=== PATIENT | male | born 1965 | race Caucasian/White ===

== ENCOUNTER 2016-09-12 20:07 | Emergency (ER) | payer OTHER ==
--- NOTE | 2016-09-12 20:13 | PDOC ---
History of Present Illness <Odell Lama - Last Filed: 09/12/16 21:04> - History of Present Illness Initial Comments: 09/12/16 20:20 The patient is a 51 year old male with a past medical hx of DVTs who was sent to the ED by his PCP for a doppler of his bilateral lower extremities to rule out DVT. The patient states he was admitted to [facility] for five weeks for DVTs to both of his calves and was discharged on August 27. The patient notes he then went to a rehab facility where he was given PT for his legs. He notes he was given blood thinners at the Rehab Center but does not recall the name of the medication. He left Rehab two days ago and was told to follow up with his PCP, Dr. Perez. He reports he saw Dr. Perez this evening who sent him to the ED for a bilateral lower extremity doppler to rule out DVT due to bilateral lower extremity edema. The patient reports swelling to his lower extremities but has no further complaints at this time. The patient denies fever, chills, weakness The patient denies chest pain, SOB, palpitations <Roya Heard - Last Filed: 09/12/16 21:07> - General Stated Complaint: SENT TO BE CHECKED FOR BILATERAL DVT Time Seen by Provider: 09/12/16 20:11 Past History <Odell Lama - Last Filed: 09/12/16 21:04> <Roya Heard - Last Filed: 09/12/16 21:07> - Past Medical History Allergies/Adverse Reactions: Allergies Allergy/AdvReac Type Severity Reaction Status Date / Time No Known Allergies Allergy Verified 09/12/16 20:08 Home Medications: Ambulatory Orders Atorvastatin Ca [Lipitor] 20 mg PO HS 09/12/16 Clopidogrel Bisulfate [Plavix -] 75 mg PO DAILY 09/12/16 Glipizide/Metformin HCl [Glipizide-Metformin 5-500 mg] 1 each PO BID 09/12/16 Metoprolol Succinate [Toprol Xl -] 50 mg PO BID 09/12/16 Review of Systems - Review of Systems Able to Perform ROS?: Yes Comments:: 09/12/16 20:20 GENERAL/CONSTITUTIONAL: No: fever, chills, weakness CARDIOVASCULAR: +bilateral lower extremity edema. No: chest pain, palpitations RESPIRATORY: No: shortness of breath <Roya Heard - Last Filed: 09/12/16 21:07> *Physical Exam - Physical Exam General Appearance: Yes: Nourished, Appropriately Dressed. No: Apparent Distress Neck: positive: Supple Respiratory/Chest: positive: Lungs Clear, Normal Breath Sounds. negative: Respiratory Distress Cardiovascular: positive: Regular Rhythm, Regular Rate Gastrointestinal/Abdominal: positive: Normal Bowel Sounds, Soft Musculoskeletal: positive: Normal Inspection. negative: CVA Tenderness, Vertebral Tenderness Extremity: positive: Normal Capillary Refill, Pedal Edema, Swelling (b/l w/o tenderness) Integumentary: negative: Ecchymosis, Bruising Neurologic: positive: Fully Oriented, Alert, Normal Mood/Affect, Normal Response , Motor Strength 5/5 <Odell Lama - Last Filed: 09/12/16 21:04> ED Treatment Course - RADIOLOGY Radiology Studies Ordered: Category Date Time Status DUPLEX VASCUL US-2LEGS [US] Stat Ultrasound 09/12/16 20:11 Ordered <Odell Lama - Last Filed: 09/12/16 21:04> - RADIOLOGY Radiograph Interpretation: 09/12/16 21:06 Bilateral leg Doppler venous ultrasound Grayscale, pulsed Doppler and color Doppler interrogation of both lower extremities deep venous system was performed. The common femoral vein, superficial femoral vein, popliteal and posterior tibial vein were identified, bilaterally with a normal phasic wave form, adequate compressibility and adequate response to augmentation. Visualized portion of the greater saphenous and deep femoral vein are patent No Cook's cyst is identified in the popliteal fossa, bilaterally. Impression: There is no evidence of deep venous thromboses in both lower extremities. Reported By: Bina Weldon MD 09/12/162058 <Roya Heard - Last Filed: 09/12/16 21:07> Progress Note - Progress Note Progress Note: NO DVT <Odell Lama Last Filed: 09/12/16 21:04> *DC/Admit/Observation/Transfer <Odell Lama - Last Filed: 09/12/16 21:04> - Attestations Scribe Attestion: 09/12/16 20:19 Documentation prepared by Roya Neroda, acting as chief medical technologist for Odell Lama MD/DO. <Roya Heard - Last Filed: 09/12/16 21:07> Diagnosis at time of Disposition: Leg edema Qualifiers: Laterality: bilateral Qualified Code(s): R60.0 - Localized edema - Discharge Dispostion Disposition: HOME Condition at time of disposition: Stable - Referrals Referrals: Sidney Perez MD [Primary Care Provider] - Call tomorrow - Patient Instructions Additional Instructions: CONTINUE MEDICATIONS PRESCRIBED CALL YOUR DOCTOR TOMORROW RETURN TO ER IF WORSENING OR NEW SYMPTOMS
[2016-09-12 20:26] VITALS: BP 108/80; PULSE 100; TEMP 98.4; BMI 30.2
== END 2016-09-12 21:08 | disposition home or self-care (01) ==
LOC: FER 20:07
DX: R60.0 Localized edema (principal); Z86.718 Personal history of other venous thrombosis and embolism; Z79.01 Long term (current) use of anticoagulants; Z79.84 Long term (current) use of oral hypoglycemic drugs
CPT/HCPCS: 93970-TC; 99281-25

== ENCOUNTER 2019-07-07 17:31 | Observation (INO) | payer OTHER ==
[2019-07-07 17:43] VITALS: TEMP 97.7; BMI 39.9
--- NOTE | 2019-07-07 17:43 | PDOC ---
Rapid Medical Evaluation Time Seen by Provider: 07/07/19 17:38 Medical Evaluation: Allergies Allergy/AdvReac Type Severity Reaction Status Date / Time No Known Allergies Allergy Verified 07/07/19 17:39 07/07/19 17:41 This patient received a in-person evaluation in triage cc/HPI: lightheadedness today with elevated blood pressure Denies chest pain or shortness of breath. Has 3 stents PE: NAD clear lungs bilaterally heart s1 s2 orders: ekg, This patient will proceed to ED for further evaluation Discharge Disposition - Diagnosis HTN (hypertension), Lightheadedness - Discharge Dispostion Condition at time of disposition: Stable - Referrals - Patient Instructions - Post Discharge Activity
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
[2019-07-07 18:21] LABS: BASO % 0.5 % (0-2.0); EOS % 1.7 % (0-4.5); HEMATOCRIT 40.7 % (35.4-49); LYMPH % 21.7 % (8-40); MCH 20.3 pg (25.7-33.7); MCHC 31.9 g/dl (32.0-35.9); MEAN CELL VOLUME 63.5 fl (80-96); MEAN PLT VOLUME 9.1 fl (7.5-11.1); MONO % 6.9 % (3.8-10.2); NEUT % 69.2 % (42.8-82.8); PLATELET COUNT 139 K/MM3 (134-434); RBC 6.41 M/mm3 (4.00-5.60); RDW 16.8 % (11.9-15.9); WHITE BLOOD COUNT 7.8 K/mm3 (4.0-10.0)
--- NOTE | 2019-07-07 18:22 | PDOC ---
History of Present Illness - General Chief Complaint: Blood Pressure Problem Stated Complaint: HYPERTENSION Time Seen by Provider: 07/07/19 17:38 History Source: Patient Exam Limitations: No Limitations - History of Present Illness Initial Comments: 53-year-old male with past medical history of hypertension, hyperlipidemia, diabetes on insulin, CAD (s/p three Cardiac stents), DVT (xthree years ago provoked by prolonged bed rest) sent to the emergency department by PCP Dr. Perez for lightheadedness since 5 AM this morning. Patient stated he awoke feeling lightheaded, felt it all day but was unable to locate his blood pressure machine until his got home, as it was in her car all day. He reported he took his pressure around 4:30 PM, and the systolic was in the one 190s, called his PCP who prompted him to come to the emergency department. He denied changes to his medications, missing medications, chest pain, shortness of breath, lower extremity swelling, nausea, vomiting, diarrhea, fever, cough, syncope. Pt reported he only ate a bowl of cereal today. ROS General: denied fever, chills, generalized weakness. HEENT: denied sore throat, rhinorrhea, ear pain. Cardiovascular: admitted to [facility]. denied chest pain, palpitations, syncope, diaphoresis. Respiratory: denied shortness of breath, cough, sputum production, hemoptysis. Gastrointestinal: denied abdominal pain, nausea, vomiting, diarrhea, constipation, blood in stool. Genitourinary: denied dysuria, increased urinary frequency, hematuria, urinary incontinence, flank pain. Back: denied back pain. Musculoskeletal: denied joint pain, muscle pain, joint swelling. Neurological: denied headache, dizziness, numbness, tingling, weakness. Integumentary: denied rash, laceration, abrasion. Hematologic/Lymphatic: denied bruising or bleeding. Constitutional: Well-nourished, Well-developed, appearing stated age. HEENT: head is normocephalic, atraumatic. EOMI. PERRLA. no posterior pharyngeal erythema.no tonsillar swelling or exudates bilaterally. uvula midline. no peritonsillar swelling, tenderness or abscess. no jaw tenderness or misalignment. Neck: supple. Full ROM. Cardiovascular: regular heart rhythm. no murmurs. no pericardial friction rub. Respiratory: clear to auscultation bilaterally. no crackles, rhonchi or wheezing. no stridor. Gastrointestinal: soft, nontender. normal bowel sounds. no rebound, guarding, masses. Extremities: peripheral pulses intact. 1+ pitting edema bilaterally. diabetic ulcer to right foot, no surrounding erythema, no increased warmth. Neurological: CN 2-12 grossly intact. moves all four extremities. Psych: awake, alert, oriented x3. follows commands. answers questions appropriately. Past History - Past Medical History Allergies/Adverse Reactions: Allergies Allergy/AdvReac Type Severity Reaction Status Date / Time No Known Allergies Allergy Verified 07/07/19 17:39 Home Medications: Ambulatory Orders Atorvastatin Ca [Lipitor] 10 mg PO HS 09/12/16 Clopidogrel Bisulfate [Plavix -] 75 mg PO DAILY 09/12/16 Glipizide/Metformin HCl [Glipizide-Metformin 5-500 mg] 1 each PO BID 09/12/16 Aspirin [Ecotrin] 81 mg PO DAILY 07/07/19 Becaplermin [Regranex] 15 gm TP BID 07/07/19 Cyanocobalamin (Vitamin B-12) [Vitamin B-12] 1,000 mcg PO DAILY 07/07/19 Metoprolol Tartrate [Lopressor -] 50 mg PO HS 07/07/19 Metoprolol Tartrate [Lopressor -] 100 mg PO AM 07/07/19 Multivitamin [Multiple Vitamins] 1 each PO DAILY 07/07/19 Telmisartan [Micardis] 80 mg PO DAILY 07/07/19 - Immunization History Immunization Up to Date: Yes - Psycho Social/Smoking Cessation Hx Smoking History: Never smoked Have you smoked in the past 12 months: No Hx Alcohol Use: No Drug/Substance Use Hx: No Substance Use Type: None *Physical Exam - Vital Signs Last Vital Signs Temp Pulse Resp BP Pulse Ox 97.7 F 89 18 181/108 H 97 07/07/19 17:39 07/07/19 17:39 07/07/19 17:39 07/07/19 17:39 07/07/19 17:39 Vital Signs - Vital Signs #1 Time: 19:10 Blood Pressure: 174/97 BP Location: Right Arm Blood Pressure Position: Sitting Pulse Rate: 88 Respiratory Rate: 16 O2 Sat by Pulse Oximetry (%): 96 Oxygen Delivery Method: Room Air ED Treatment Course - LABORATORY CBC & Chemistry Diagram: 07/07/19 18:07 07/07/19 18:07 Medical Decision Making - Medical Decision Making 53 year old male with above PMH presented to ED for lightheadedness since this AM associated with HTN. Initial Vital Signs Temp Pulse Resp BP Pulse Ox 97.7 F 89 18 181/108 H 97 07/07/19 17:39 07/07/19 17:39 07/07/19 17:39 07/07/19 17:39 07/07/19 17:39 Afebrile. No tachycardia. No tachypnea. Hypertensive. No hypoxia on room air. Labs ordered: CBC, CMP, Mg, Troponin, UA, PT/PTT/INR Imaging ordered: CXR Medications ordered: none EKG performed at: 1747: rate 87, regular rhythm, normal axis, NH 204, QTC 452, no acute ST changes. CXR my view: sharp costophrenic angles, no cardiomegaly, no infiltrate. -Pending official report 07/07/19 19:16 Time: 19:10 Blood Pressure: 174/97 BP Location: Right Arm Blood Pressure Position: Sitting Pulse Rate: 88 Respiratory Rate: 16 O2 Sat by Pulse Oximetry (%): 96 Oxygen Delivery Method: Room Air Hypertension improved with no treatment. Laboratory Last Values WBC 7.8 K/mm3 (4.0-10.0) 07/07/19 18:07 RBC 6.41 M/mm3 (4.00-5.60) H 07/07/19 18:07 Hgb 13.0 GM/dL (11.7-16.9) 07/07/19 18:07 Hct 40.7 % (35.4-49) 07/07/19 18:07 MCV 63.5 fl (80-96) L 07/07/19 18:07 MCH 20.3 pg (25.7-33.7) L 07/07/19 18:07 MCHC 31.9 g/dl (32.0-35.9) L 07/07/19 18:07 RDW 16.8 % (11.9-15.9) H 07/07/19 18:07 Plt Count 139 K/MM3 (134-434) 07/07/19 18:07 MPV 9.1 fl (7.5-11.1) 07/07/19 18:07 Absolute Neuts (auto) 5.4 K/mm3 (1.5-8.0) 07/07/19 18:07 Neutrophils % 69.2 % (42.8-82.8) 07/07/19 18:07 Lymphocytes % 21.7 % (8-40) 07/07/19 18:07 Monocytes % 6.9 % (3.8-10.2) 07/07/19 18:07 Eosinophils % 1.7 % (0-4.5) 07/07/19 18:07 Basophils % 0.5 % (0-2.0) 07/07/19 18:07 Nucleated RBC % 0 % (0-0) 07/07/19 18:07 Hypochromia 1+ 07/07/19 18:07 Platelet Estimate Adequate 07/07/19 18:07 Anisocytosis 1+ 07/07/19 18:07 Ovalocytes Few 07/07/19 18:07 PT with INR 12.40 SEC (9.7-13.0) 07/07/19 18:07 INR 1.05 (0.83-1.09) 07/07/19 18:07 PTT (Actin FS) 32.0 SECONDS (25.2-36.5) 07/07/19 18:07 Sodium 142 mmol/L (136-145) 07/07/19 18:07 Potassium 3.7 mmol/L (3.5-5.1) 07/07/19 18:07 Chloride 106 mmol/L (98-107) 07/07/19 18:07 Carbon Dioxide 32 mmol/L (21-32) 07/07/19 18:07 Anion Gap 4 MMOL/L (8-16) L 07/07/19 18:07 BUN 13.8 mg/dL (7-18) 07/07/19 18:07 Creatinine 0.8 mg/dL (0.55-1.3) 07/07/19 18:07 Est GFR (CKD-EPI)AfAm 116.56 07/07/19 18:07 Est GFR (CKD-EPI)NonAf 100.57 07/07/19 18:07 Random Glucose 175 mg/dL (74-106) H 07/07/19 18:07 Calcium 8.4 mg/dL (8.5-10.1) L 07/07/19 18:07 Magnesium 2.1 mg/dL (1.8-2.4) 07/07/19 18:07 Total Bilirubin 0.9 mg/dL (0.2-1) 07/07/19 18:07 AST 18 U/L (15-37) 07/07/19 18:07 ALT 24 U/L (13-61) 07/07/19 18:07 Alkaline Phosphatase 98 U/L (45-117) 07/07/19 18:07 Troponin I < 0.02 ng/ml (0.00-0.05) 07/07/19 18:07 Total Protein 6.9 g/dl (6.4-8.2) 07/07/19 18:07 Albumin 3.8 g/dl (3.4-5.0) 07/07/19 18:07 Urine Color Yellow 07/07/19 19:08 Urine Appearance Clear 07/07/19 19:08 Urine pH 7.5 (5.0-8.0) 07/07/19 19:08 Ur Specific [place] 1.018 (1.010-1.035) 07/07/19 19:08 Urine Protein Negative (NEGATIVE) 07/07/19 19:08 Urine Glucose (UA) Trace (NEGATIVE) 07/07/19 19:08 Urine Ketones Negative (NEGATIVE) 07/07/19 19:08 Urine Blood Negative (NEGATIVE) 07/07/19 19:08 Urine Nitrite Negative (NEGATIVE) 07/07/19 19:08 Urine Bilirubin Negative (NEGATIVE) 07/07/19 19:08 Urine Urobilinogen 0.2 mg/dL (0.2-1.0) 07/07/19 19:08 Ur Leukocyte Esterase Negative (NEGATIVE) 07/07/19 19:08 No leukocytosis. No anemia. No electrolyte abnormalities. No ANTWON. Troponin undetectable. UA negative for proteinuria, hematuria. Pt reported he is hungry as he has not ate all day except a bowl of cereal, requesting food. Pt given sandwhich. 07/07/19 19:30 Pt reported intense nausea with a few bites of his sandwich. Advised to stop eating. Repeat EKG ordered. 07/07/19 19:33 EKG performed at 1932: rate 89, regular rhythm, normal axis, NH 204, QTc 447, 1 PVC, no acute ST changes. Dr. Encinas paged. 07/07/19 19:46 Dr. Encinas recommended observation, cardiology consult in the AM, may need changes to HTN medications. Would repeat troponins. Pending admission. 07/07/19 20:09 POC glucose 132 07/07/19 20:27 Signout given to TY Grace pt to be admitted under Dr. Damico' care. Discharge - Discharge Information Problems reviewed: Yes Clinical Impression/Diagnosis: HTN (hypertension), Lightheadedness Condition: Stable - Admission Yes - Follow up/Referral Referrals: Sidney Perez MD [Primary Care Provider] - - Patient Discharge Instructions - Post Discharge Activity
[2019-07-07 18:43] LABS: INR 1.05 (0.83-1.09); PROTHROMBIN TIME (PATIENT) 12.4 SEC (9.7-13.0)
[2019-07-07 18:46] LABS: ALBUMIN 3.8 g/dl (3.4-5.0); ALK PHOS 98 U/L (45-117); ANION GAP 4 MMOL/L (8-16); BILIRUBIN,TOTAL 0.9 mg/dL (0.2-1); BLOOD UREA NITROGEN 13.8 mg/dL (7-18); CALCIUM 8.4 mg/dL (8.5-10.1); CHLORIDE 106 mmol/L (98-107); CO2 32 mmol/L (21-32); CREATININE 0.8 mg/dL (0.55-1.3); GLUCOSE,RANDOM 175 mg/dL (74-106); MAGNESIUM 2.1 mg/dL (1.8-2.4); POTASSIUM 3.7 mmol/L (3.5-5.1); SGOT/AST 18 U/L (15-37); SGPT/ALT 24 U/L (13-61); SODIUM 142 mmol/L (136-145); TOT PROT 6.9 g/dl (6.4-8.2)
[2019-07-07 19:00] LABS: ANISOCYTOSIS 1+; OVALOCYTE FEW; PLATELET ESTIMATE ADEQUATE
[2019-07-07 19:15] LABS: PH,URINE 7.5 (5.0-8.0); URINE APPEARANCE CLEAR; URINE BILIRUBIN NEGATIVE (NEGATIVE); URINE COLOR YELLOW; URINE GLUCOSE (UA) TRACE (NEGATIVE); URINE KETONE NEGATIVE (NEGATIVE); URINE LEUK ESTERASE NEGATIVE (NEGATIVE); URINE NITRITE NEGATIVE (NEGATIVE); URINE PROTEIN NEGATIVE (NEGATIVE); URINE UROBILINOGEN 0.2 mg/dL (0.2-1.0)
[2019-07-07] MEDS ORDERED: ONDANSETRON 4 MG/2 ML VIAL IVPUSH ONE (20:21)
[2019-07-07] MEDS ORDERED: ONDANSETRON 4 MG/2 ML VIAL ONE (20:28)
--- NOTE | 2019-07-07 22:27 | HP ---
Admitting History and Physical - Primary Care Physician PCP: Dr. Damico - Admission Chief Complaint: Lightheadedness, high bp History of Present Illness: 53 year old male with a past medical history of HTN/HLD, CAD ( s/p three Cardiac stents), DM, and DVT (three years ago provoked by prolonged bed rest) sent to Emergency department by PCP Dr. Perez for lightheadedness since 5 AM this morning and elevated blood pressures. Patient complains of lightheadedness , dizziness and nausea which started x1 day. Patient checked his BP at home systolic elevated in 190s. Member claims compliant with medication. patient denies acute SOB/CP, headache, voimiting, denies abd pain, dysuria, frequency at this time. History Source: Patient Limitations to Obtaining History: No Limitations - Past Medical History Cardiovascular: Yes: CAD, HTN, Hyperlipdemia Endocrine: Yes: Diabetes Mellitus (peripheral neuropathy) Dermatology: Yes: Other (nonhealing wound on the sole of his right foot) - Past Surgical History Past Surgical History: Yes: Stent - Smoking History Smoking history: Never smoked Have you smoked in the past 12 months: No - Alcohol/Substance Use Hx Alcohol Use: No History of Substance Use: reports: None - Social History Usual Living Arrangement: Yes: With Significant Other ADL: Independent History of Recent Travel: No Home Medications - Allergies Allergies/Adverse Reactions: Allergies Allergy/AdvReac Type Severity Reaction Status Date / Time No Known Allergies Allergy Verified 07/07/19 17:39 - Home Medications Home Medications: Ambulatory Orders Atorvastatin Ca [Lipitor] 10 mg PO HS 09/12/16 Clopidogrel Bisulfate [Plavix -] 75 mg PO DAILY 09/12/16 Glipizide/Metformin HCl [Glipizide-Metformin 5-500 mg] 1 each PO BID 09/12/16 Aspirin [Ecotrin] 81 mg PO DAILY 07/07/19 Becaplermin [Regranex] 15 gm TP BID 07/07/19 Cyanocobalamin (Vitamin B-12) [Vitamin B-12] 1,000 mcg PO DAILY 07/07/19 Metoprolol Tartrate [Lopressor -] 50 mg PO HS 07/07/19 Metoprolol Tartrate [Lopressor -] 100 mg PO AM 07/07/19 Multivitamin [Multiple Vitamins] 1 each PO DAILY 07/07/19 Telmisartan [Micardis] 80 mg PO DAILY 07/07/19 Family Medical History Family History: Denies Review of Systems - Review of Systems Constitutional: reports: Other (lightheadedness) Eyes: reports: No Symptoms HENT: reports: No Symptoms Neck: reports: No Symptoms Cardiovascular: reports: No Symptoms Respiratory: reports: No Symptoms Gastrointestinal: reports: Nausea Genitourinary: reports: No Symptoms Musculoskeletal: reports: No Symptoms Integumentary: reports: No Symptoms Neurological: reports: Dizziness Endocrine: reports: No Symptoms Hematology/Lymphatic: reports: No Symptoms Psychiatric: reports: No Symptoms Physical Examination Vital Signs: Vital Signs Temperature 97.7 F 07/07/19 17:39 Pulse Rate 88 07/07/19 20:27 Respiratory Rate 16 07/07/19 20:27 Blood Pressure 174/97 H 07/07/19 20:27 O2 Sat by Pulse Oximetry (%) 96 07/07/19 20:27 Constitutional: Yes: No Distress, Calm Eyes: Yes: Conjunctiva Clear, EOM Intact HENT: Yes: Atraumatic, Normocephalic Neck: Yes: Supple, Trachea Midline Cardiovascular: Yes: Regular Rate and Rhythm Respiratory: Yes: Regular, CTA Bilaterally Gastrointestinal: Yes: Normal Bowel Sounds, Soft, Abdomen, Obese ...Rectal Exam: Yes: WNL Renal/: Yes: WNL Musculoskeletal: Yes: WNL Extremities: Yes: Other (chronic nonhealing ulcer to sole of right foot) Edema: Yes Edema: LLE: 1+, RLE: 1+ Peripheral Pulses WNL: Yes Neurological: Yes: Alert, Oriented Labs: CBC, BMP 07/07/19 18:07 07/07/19 18:07 Imaging - Results Chest X-ray: Report Reviewed (no acute infiltrate) EKG: Report Reviewed (EKG is normal sinus rhythm at 87, no acute s/t changes, trop negative) Problem List - Problems (1) Pre-syncope Code(s): R55 - SYNCOPE AND COLLAPSE (2) Lightheadedness Code(s): R42 - DIZZINESS AND GIDDINESS (3) Diabetes Code(s): E11.9 - TYPE 2 DIABETES MELLITUS WITHOUT COMPLICATIONS (4) Polyneuropathy Code(s): G62.9 - POLYNEUROPATHY, UNSPECIFIED (5) CAD (coronary artery disease) Code(s): I25.10 - ATHSCL HEART DISEASE OF [place] CORONARY ARTERY W/O ANG PCTRS (6) HLD (hyperlipidemia) Code(s): E78.5 - HYPERLIPIDEMIA, UNSPECIFIED (7) HTN (hypertension) Code(s): I10 - ESSENTIAL (PRIMARY) HYPERTENSION (8) History of DVT (deep vein thrombosis) Code(s): Z86.718 - PERSONAL HISTORY OF OTHER VENOUS THROMBOSIS AND EMBOLISM (9) Chronic diabetic ulcer of right foot determined by examination Code(s): E11.621 - TYPE 2 DIABETES MELLITUS WITH FOOT ULCER; L97.519 - NON-PRS CHRONIC ULCER OTH PRT RIGHT FOOT W UNSP SEVERITY Assessment/Plan 53-year-old male with past medical history of coronary artery disease status post cardiac stents, HTN/ HLD, DM arrived to ED for lightheadedness, nausea and elevated BP. # Pre-Syncope # Nausea Troponin undetectable, follow up #2 CXR: no acute infiltrate UA:negative initial EKG is normal sinus rhythm at 87 with old Q waves in 2 3 and aVF post eating a sandwich, noted with intense nausea Repeat EKG: rate 89, regular rhythm, normal axis, 1 PVC, no acute ST changes ED discussed with Dr. Encinas, monitor tele obs - if noted with further nausea, consider zofran PRN follow up cadiology # HTN/ HLD # CAD -Atorvastatin Ca 10 mg PO HS -Clopidogrel Bisulfate 75 mg PO DAILY -Aspirin 81 mg PO DAILY -Metoprolol Tartrate 50 mg PO HS -Metoprolol Tartrate 100 mg PO AM -Telmisartan 80 mg PO DAILY - follow up lipids profile # DM # Diabetic neuropathy - monitor FSBS BIDAC - coverage with novolog sliding scale - follow A1c # chronic nonhealing diabetic ulcer ( right foot ) - local wound care - pain management Dispo: tele obs VTE: SCDs FEN: KERON/NCS diet, monitor lytes Visit type - Emergency Visit Emergency Visit: Yes ED Registration Date: 07/07/19 Care time: The patient presented to the Emergency Department on the above date and was hospitalized for further evaluation of their emergent condition. - New Patient This patient is new to me today: Yes Date on this admission: 07/07/19 - Critical Care Critical Care patient: No
[2019-07-07] MEDS ORDERED: ACETAMINOPHEN 325 MG TABLET (FP) PO PRN (22:48)
[2019-07-08] MEDS ORDERED: INSULIN SLIDING SCALE (NOVOLOG) 1 VIAL SQ SCH (07:00)
[2019-07-08] MEDS ORDERED: METOPROLOL TARTRATE 50 MG TABLET (FP) PO SCH ×2 (07:00→22:00)
[2019-07-08] MEDS ORDERED: METOPROLOL TARTRATE 50 MG TABLET (FP) ONE (07:03)
[2019-07-08 07:14] LABS: HEMATOCRIT 38.9 % (35.4-49); HEMOGLOBIN 12.5 GM/dL (11.7-16.9); MCH 20.3 pg (25.7-33.7); MCHC 32.1 g/dl (32.0-35.9); MEAN CELL VOLUME 63.2 fl (80-96); MEAN PLT VOLUME 8.9 fl (7.5-11.1); PLATELET COUNT 97 K/MM3 (134-434); RBC 6.16 M/mm3 (4.00-5.60); RDW 16.6 % (11.9-15.9)
[2019-07-08 07:47] LABS: ANION GAP 7 MMOL/L (8-16); BLOOD UREA NITROGEN 10.4 mg/dL (7-18); CALCIUM 8.4 mg/dL (8.5-10.1); CHLORIDE 108 mmol/L (98-107); CHOLESTEROL 102 mg/dL (50-200); CO2 29 mmol/L (21-32); CREATININE 0.7 mg/dL (0.55-1.3); GLUCOSE,RANDOM 113 mg/dL (74-106); HDL CHOLESTEROL 31 mg/dL (40-60); LDL CHOLESTEROL (ONLY SJRH) 52 mg/dL (5-100); POTASSIUM 3.7 mmol/L (3.5-5.1); SODIUM 144 mmol/L (136-145); TRIGLYCERIDES 132 mg/dL (0-150)
--- NOTE | 2019-07-08 09:42 | EKG ---
Test Reason : Blood Pressure : / mmHG Vent. Rate : 089 BPM Atrial Rate : 089 BPM P-R Int : 204 ms QRS Dur : 094 ms QT Int : 368 ms P-R-T Axes : 009 006 056 degrees QTc Int : 447 ms POOR DATA QUALITY, INTERPRETATION MAY BE ADVERSELY AFFECTED SINUS RHYTHM WITH OCCASIONAL PREMATURE VENTRICULAR COMPLEXES INFERIOR INFARCT , AGE UNDETERMINED ABNORMAL ECG WHEN COMPARED WITH ECG OF 27-OCT-2008 18:13, NO SIGNIFICANT CHANGE WAS FOUND Confirmed by MD Vargas Daniel ([id number]) on 07/08/2019 9:42:32 AM Referred By: Confirmed By:Jv Vargas MD
--- NOTE | 2019-07-08 09:45 | EKG ---
Test Reason : Blood Pressure : / mmHG Vent. Rate : 087 BPM Atrial Rate : 087 BPM P-R Int : 204 ms QRS Dur : 094 ms QT Int : 376 ms P-R-T Axes : 044 022 068 degrees QTc Int : 452 ms POOR DATA QUALITY, INTERPRETATION MAY BE ADVERSELY AFFECTED NORMAL SINUS RHYTHM INFERIOR INFARCT , AGE UNDETERMINED ABNORMAL ECG WHEN COMPARED WITH ECG OF 27-OCT-2008 18:13, PREMATURE VENTRICULAR COMPLEXES ARE NO LONGER PRESENT Confirmed by MD Sam, Jv ([id number]) on 07/08/2019 9:45:00 AM Referred By: Confirmed By:Jv Vargas MD
[2019-07-08] MEDS ORDERED: PATIENT'S OWN MEDICATION (NON-FORMULARY) (Cyanocobalamin (Vitamin B-12) [Vitamin B-12] 1,0 PO SCH (10:00)
[2019-07-08] MEDS ORDERED: MULTIVITAMINS (DAILY MVI) TABLET (FP) PO SCH (10:00)
[2019-07-08] MEDS ORDERED: PATIENT'S OWN MEDICATION (NON-FORMULARY) (Telmisartan [Micardis] 80 MG) PO SCH (10:00)
[2019-07-08] MEDS ORDERED: ASPIRIN COATED 81 MG TABLET.EC PO SCH (10:00)
[2019-07-08] MEDS ORDERED: CYANOCOBALAMIN 1,000 MCG TABLET (FP) PO SCH (10:00)
[2019-07-08] MEDS ORDERED: LOSARTAN POTASSIUM 50 MG TABLET (FP) PO SCH (10:00)
[2019-07-08] MEDS ORDERED: CLOPIDOGREL BISULFATE 75 MG TABLET (FP) PO SCH (10:00)
--- NOTE | 2019-07-08 11:00 | PN ---
Progress Note, Physician Chief Complaint: Light headedness History of Present Illness: NAD Denies any dizziness, N/V at this time Wants to go home Feels dizzy like "the room is spinning when lying flat-->lconsistent with Vertigo EKG+Trops negative seen by Cardiology - Current Medication List Current Medications: Active Medications Acetaminophen (Tylenol -) 650 mg PO Q6H PRN PRN Reason: PAIN LEVEL 1-5 Aspirin (Ecotrin -) 81 mg PO DAILY [facility] [place] Last Admin: 07/08/19 10:31 Dose: 81 mg Atorvastatin Calcium (Lipitor -) 10 mg PO HS [facility] [place] Clopidogrel Bisulfate (Plavix -) 75 mg PO DAILY [facility] [place] Last Admin: 07/08/19 10:31 Dose: 75 mg Cyanocobalamin (Vitamin B12 -) 1,000 mcg PO DAILY [facility] [place] Last Admin: 07/08/19 10:32 Dose: 1,000 mcg Insulin Aspart (Novolog Vial Sliding Scale -) 1 vial SQ BIDAC [facility] [place]; Protocol Last Admin: 07/08/19 07:09 Dose: Not Given Losartan Potassium (Cozaar -) 100 mg PO DAILY [facility] [place] Last Admin: 07/08/19 10:31 Dose: Not Given Metoprolol Tartrate (Lopressor -) 50 mg PO HS [facility] [place] Metoprolol Tartrate (Lopressor -) 100 mg PO AM [facility] [place] Last Admin: 07/08/19 07:09 Dose: 100 mg Multivitamins/Minerals/Vitamin C (Tab-A-Vit -) 1 tab PO DAILY [facility] [place] Last Admin: 07/08/19 10:32 Dose: 1 tab - Objective Vital Signs: Vital Signs Temperature 97.7 F 07/07/19 17:39 Pulse Rate 84 07/08/19 10:00 Respiratory Rate 18 07/08/19 10:00 Blood Pressure 154/93 07/08/19 10:00 O2 Sat by Pulse Oximetry (%) 96 07/08/19 10:00 Constitutional: Yes: Well Nourished, No Distress, Calm Cardiovascular: Yes: Regular Rate and Rhythm Respiratory: Yes: Regular Gastrointestinal: Yes: WNL, Normal Bowel Sounds, Soft, Abdomen, Obese Genitourinary: Yes: WNL Musculoskeletal: Yes: WNL Extremities: Yes: WNL Edema: No Peripheral Pulses WNL: Yes Neurological: Yes: Alert, Oriented Psychiatric: Yes: Alert, Oriented Labs: CBC, BMP 07/08/19 06:55 07/08/19 06:55 INR, PTT INR 1.05 (0.83-1.09) 07/07/19 18:07 Problem List - Problems (1) CAD (coronary artery disease) Assessment/Plan: -Cardiology consult -Atorvastatin 10 mg PO HS -Clopidogrel Bisulfate 75 mg PO DAILY -Aspirin 81 mg PO DAILY -Metoprolol Tartrate 50 mg PO HS -Metoprolol Tartrate 100 mg PO AM -Telmisartan 80 mg PO DAILY -Start Amlodipine 5 mg po daily Problems reviewed: Yes Code(s): I25.10 - ATHSCL HEART DISEASE OF [place] CORONARY ARTERY W/O ANG PCTRS (2) Diabetes Assessment/Plan: -Check A1c -Endocrine consult -BGM AC HS -ISS -Diabetic low sodium diet Problems reviewed: Yes Code(s): E11.9 - TYPE 2 DIABETES MELLITUS WITHOUT COMPLICATIONS (3) HTN (hypertension) Assessment/Plan: -Cardiology consult -resume home meds -monitor BP -check orthostatics Problems reviewed: Yes Code(s): I10 - ESSENTIAL (PRIMARY) HYPERTENSION (4) Dizziness Assessment/Plan: -likely vertigo -Meclizine 25 mg TID PRN Problems reviewed: Yes Code(s): R42 - DIZZINESS AND GIDDINESS Assessment/Plan NAD
--- NOTE | 2019-07-08 12:24 | CON.CARD ---
Consult Consult Specialty:: Cardiology Referred by:: Medicine Reason for Consultation:: dizziness - History of Present Illness Chief Complaint: dizziness History of Present Illness: 53M h/o HTN, HLD, CAD s/p stents, DM, DVT p/w dizziness. [place] dizzy with room spinning early in the morning prior to admission. BP at home per patient >190/ 110. Also felt tired, nauseated and couldn't keep food down. Has been taking meds as prescribed. Sees Dr. Encinas for cardio. Had another episode of dizziness and nausea in the ER, threw up after eating. This morning denies complaints, wants to go home. - Past Medical History Cardio/Vascular: Yes: CAD, HTN, Hyperlipdemia Endocrine: Yes: Diabetes Mellitus (peripheral neuropathy) Dermatology: Yes: Other (nonhealing wound on the sole of his right foot) - Past Surgical History Past Surgical History: Yes: Stent - Alcohol/Substance Use Hx Alcohol Use: No History of Substance Use: reports: None - Smoking History Smoking history: Never smoked Have you smoked in the past 12 months: No - Social History ADL: Independent History of Recent Travel: No Home Medications - Allergies Allergies/Adverse Reactions: Allergies Allergy/AdvReac Type Severity Reaction Status Date / Time No Known Allergies Allergy Verified 07/07/19 17:39 - Home Medications Home Medications: Ambulatory Orders Atorvastatin Ca [Lipitor] 10 mg PO HS 09/12/16 Clopidogrel Bisulfate [Plavix -] 75 mg PO DAILY 09/12/16 Glipizide/Metformin HCl [Glipizide-Metformin 5-500 mg] 1 each PO BID 09/12/16 Aspirin [Ecotrin] 81 mg PO DAILY 07/07/19 Becaplermin [Regranex] 15 gm TP BID 07/07/19 Cyanocobalamin (Vitamin B-12) [Vitamin B-12] 1,000 mcg PO DAILY 07/07/19 Metoprolol Tartrate [Lopressor -] 50 mg PO HS 07/07/19 Metoprolol Tartrate [Lopressor -] 100 mg PO AM 07/07/19 Multivitamin [Multiple Vitamins] 1 each PO DAILY 07/07/19 Telmisartan [Micardis] 80 mg PO DAILY 07/07/19 Family Medical History Family History: Unremarkable Review of Systems - Review of Systems Constitutional: reports: No Symptoms Eyes: reports: No Symptoms HENT: reports: No Symptoms Neck: reports: No Symptoms Cardiovascular: reports: No Symptoms Respiratory: reports: No Symptoms Gastrointestinal: reports: No Symptoms Genitourinary: reports: No Symptoms Musculoskeletal: reports: No Symptoms Integumentary: reports: No Symptoms Neurological: reports: No Symptoms Endocrine: reports: No Symptoms Hematology/Lymphatic: reports: No Symptoms Psychiatric: reports: No Symptoms Vital Signs: Vital Signs Temperature 97.7 F 07/07/19 17:39 Pulse Rate 84 07/08/19 10:00 Respiratory Rate 18 07/08/19 10:00 Blood Pressure 154/93 07/08/19 10:00 O2 Sat by Pulse Oximetry (%) 96 07/08/19 10:00 Constitutional: Yes: No Distress, Calm Eyes: Yes: Conjunctiva Clear, EOM Intact HENT: Yes: Atraumatic, Normocephalic Neck: Yes: Supple, Trachea Midline Respiratory: Yes: Regular, CTA Bilaterally Gastrointestinal: Yes: Normal Bowel Sounds, Soft Cardiovascular: Yes: Regular Rate and Rhythm JVD: No Heart Sounds: Yes: S1, S2 Extremities: No: Cold Edema: No Integumentary: No: Jaundice Neurological: Yes: Alert, Oriented Psychiatric: No: Agitated - Other Data Labs, Other Data: CBC, BMP 07/08/19 06:55 07/08/19 06:55 INR, PTT INR 1.05 (0.83-1.09) 07/07/19 18:07 Troponin, BNP 07/07/19 07/08/19 18:07 06:55 Troponin I < 0.02 < 0.02 Troponin, BNP 07/07/19 07/08/19 18:07 06:55 Troponin I < 0.02 < 0.02 Assessment/Plan EKG: sinus, old inf infarct, PVCs tele: sinus L/RHC 07/2016 mLAD 40%, OM3 50%, patent stent RPLB, EF 50% stress echo 08/2018 4 min, 7 METS, 97% MPHR, no EKG changes, technically limited images with nl augmentation of contraction in all visualized territories with appropriate dec in cavity size echo 03/2017 nl LV functoin, RV nl, valves wnl dizziness - EKG unremarkable, trop neg x 1, no events on tele - history more consistent with vertigo vs vasovagal - check orthostatics, if unremarkable stable for dc from cardiac perspective HTN - elevated at home, improved here - cont current meds, add amlodipine 5 mg daily CAD s/p PCI - no signs ACS - cont aspirin, statin, plavix, bb HLD - cont statin DM - manage per primary
[2019-07-08] MEDS ORDERED: MECLIZINE HCL 25 MG TABLET (FP) PO ONE (15:20)
[2019-07-08] MEDS ORDERED: MECLIZINE HCL 25 MG TABLET (FP) ONE (16:17)
[2019-07-08 17:33] VITALS: PULSE 88
[2019-07-08 19:38] VITALS: BP 174/97
[2019-07-08] MEDS ORDERED: ATORVASTATIN CA 10 MG TABLET (FP) PO SCH (22:00)
--- NOTE | 2019-07-30 15:08 | EKG ---
Test Reason : Blood Pressure : / mmHG Vent. Rate : 085 BPM Atrial Rate : 085 BPM P-R Int : 202 ms QRS Dur : 098 ms QT Int : 386 ms P-R-T Axes : 001 014 069 degrees QTc Int : 459 ms NORMAL SINUS RHYTHM cannot r/o inferior wall acute STEMI POSSIBLE INFERIOR INFARCT (CITED ON OR BEFORE 07-JUL-2019) CANNOT RULE OUT ANTERIOR INFARCT , AGE UNDETERMINED ABNORMAL ECG WHEN COMPARED WITH ECG OF 07-JUL-2019 19:32, PREMATURE VENTRICULAR COMPLEXES ARE NO LONGER PRESENT Confirmed by SWATHI WALL, GUERITA ([id number]) on 07/30/2019 3:08:28 PM Referred By: Confirmed By:GUERITA ECHEVARRIA MD
== END 2019-07-08 17:00 | disposition home or self-care (01) ==
LOC: JER 17:31 → JERBED 19:54
PROVIDERS: ADMIT Internal Medicine; ATTEND Family Medicine
PROC: 3E033GC Introduction of Other Therapeutic Substance into Peripheral Vein, Percutaneous Approach (ICD-10-PCS; principal; 2019-07-07)
DX: I10 Essential (primary) hypertension (principal); R42 Dizziness and giddiness; R55 Syncope and collapse; E78.5 Hyperlipidemia, unspecified; I25.10 Atherosclerotic heart disease of native coronary artery without angina pectoris; E11.42 Type 2 diabetes mellitus with diabetic polyneuropathy; Z79.4 Long term (current) use of insulin; Z79.84 Long term (current) use of oral hypoglycemic drugs; E11.621 Type 2 diabetes mellitus with foot ulcer; L97.519 Non-pressure chronic ulcer of other part of right foot with unspecified severity; E66.9 Obesity, unspecified; Z68.39 Body mass index [BMI] 39.0-39.9, adult; Z95.5 Presence of coronary angioplasty implant and graft; Z86.718 Personal history of other venous thrombosis and embolism
CPT/HCPCS: 36415; 71045-TC-FY; 80048; 80053; 80061; 81003; 82962; 83036; 83721; 83735; 84484; 85025; 85027; 85610; 85730; 93005; 93010; 99285-25; G0378

== ENCOUNTER 2023-01-04 11:26 | Inpatient (IN) | payer OTHER ==
[2023-01-04] MEDS ORDERED: SODIUM CHLORIDE 3,062 ML IV ONE (12:29)
[2023-01-04] MEDS ORDERED: SODIUM CHLORIDE 1,000 ML IV STA (12:35)
[2023-01-04] MEDS ORDERED: VANCOMYCIN/WATER 2 GM/400 ML PREMIX BAG (RESTRICTED TO ID ONLY) IVPB ONE (12:46)
[2023-01-04] MEDS ORDERED: PIPERACILLIN/TAZOB 4.5 GM 4.5 GM in DEXTROSE 5%-WATER 100 ML IVPB ONE (12:48)
[2023-01-04 13:06] LABS: VENOUS BASE EXCESS -10.4 mmol/L (-2-2); VENOUS O2 SATURATION 56.3 % (70-80); VENOUS PCO2 37.8 mmHg (38-52); VENOUS PH 7.247 (7.310-7.410)
[2023-01-04 13:16] LABS: BASO % 0.1 % (0-2.0); HEMATOCRIT 37.1 % (35.4-49); HEMOGLOBIN 11.9 GM/dL (11.7-16.9); LYMPH % 9.1 % (8-40); MCH 20.6 pg (25.7-33.7); MEAN CELL VOLUME 64.3 fl (80-96); MEAN PLT VOLUME 8.4 fl (7.5-11.1); MONO % 10.2 % (3.8-10.2); NEUT % 80.6 % (42.8-82.8); PLATELET COUNT 116 10^3/uL (134-434); RBC 5.76 M/mm3 (4.00-5.60); RDW 15.4 % (11.9-15.9); WHITE BLOOD COUNT 8.9 K/mm3 (4.0-10.0)
[2023-01-04 13:22] LABS: INR 1.11 (0.83-1.09); PROTHROMBIN TIME (PATIENT) 12.9 SEC (9.7-13.0)
[2023-01-04 13:35] LABS: CHLORIDE 93 mmol/L (98-107); POTASSIUM 4.9 mmol/L (3.5-5.1); SODIUM 134 mmol/L (136-145)
[2023-01-04 13:37] LABS: CALCIUM 8.7 mg/dL (8.5-10.1)
[2023-01-04 13:38] LABS: ALBUMIN 3.3 g/dl (3.4-5.0); ANION GAP 21 MMOL/L (8-16); BLOOD UREA NITROGEN 33.9 mg/dL (7-18); CO2 20 mmol/L (21-32); MAGNESIUM 2.4 mg/dL (1.8-2.4)
[2023-01-04 13:41] LABS: CREATININE 1.6 mg/dL (0.55-1.3); PHOSPHOROUS 3.6 mg/dL (2.5-4.9); SGOT/AST 21 U/L (15-37); SGPT/ALT 23 U/L (13-61)
[2023-01-04 13:42] LABS: TOT PROT 6.2 g/dl (6.4-8.2)
[2023-01-04 13:43] LABS: BILIRUBIN,TOTAL 1.4 mg/dL (0.2-1)
[2023-01-04 13:44] LABS: ALK PHOS 77 U/L (45-117)
[2023-01-04 14:02] LABS: GLUCOSE,RANDOM 461 mg/dL (74-106)
[2023-01-04] MEDS ORDERED: SODIUM CHLORIDE 0.9% 500 ML INFUS.BAG IV ONE (14:02)
[2023-01-04] MEDS ORDERED: DEXTROSE 50%-WATER - 25 GM/50 ML VIAL IVPUSH PRN (14:03)
[2023-01-04] MEDS ORDERED: KCL 10 MEQ IVPB 10 MEQ/100 ML INFUS.BAG IVPB SCH (14:15)
[2023-01-04] MEDS ORDERED: KCL 10 MEQ IVPB 10 MEQ/100 ML INFUS.BAG IVPB ONE (14:28)
[2023-01-04] MEDS ORDERED: PIPERACILLIN/TAZOB 4.5 GM 4.5 GM/100 ML BAG IVPB ONE (14:28)
[2023-01-04 14:45] LABS: ANISOCYTOSIS 3+; MACROCYTOSIS 0; OVALOCYTE 1+
[2023-01-04] MEDS ORDERED: INSULIN REGULAR 100 UNITS in SODIUM CHLORIDE 99 ML IVPB SCH (14:45)
[2023-01-04 14:55] LABS: EPI CELLS >36 /uL (0-25.1); HYALINE CASTS 1 /uL (0-3.1); URINE APPEARANCE CLOUDY; URINE BACTERIA 3296 /uL (0-1359); URINE BILIRUBIN NEGATIVE (NEGATIVE); URINE COLOR YELLOW; URINE GLUCOSE (UA) 3+ (NEGATIVE); URINE KETONE 4+ (NEGATIVE); URINE LEUK ESTERASE 2+ (NEGATIVE); URINE NITRITE NEGATIVE (NEGATIVE); URINE PROTEIN TRACE (NEGATIVE); URINE UROBILINOGEN 0.2 mg/dL (0.2-1.0); URINE WBC 1550 /uL (0-25.8)
[2023-01-04 15:31] LABS: URINE RBC 39.6 /uL (0-23.9)
[2023-01-04 15:32] LABS: YEAST POSITIVE (NEGATIVE)
[2023-01-04] MEDS ORDERED: SODIUM CHLORIDE 0.45% 1,000 ML IV SCH (16:45)
[2023-01-04] MEDS ORDERED: LACTATED RINGERS SOLUTION 1,000 ML/1,000 ML INFUS.BAG IV SCH (17:15)
[2023-01-04] MEDS: ATORVASTATIN CA 80 MG TABLET (FP) PO SCH (21:14)
[2023-01-04] MEDS ORDERED: DEXTROSE 5%-LACTATED RINGERS 1,000 ML IV SCH (21:15)
[2023-01-04 21:42] LABS: POTASSIUM 3.8 mmol/L (3.5-5.1)
[2023-01-04 21:52] LABS: BLOOD UREA NITROGEN 25.3 mg/dL (7-18); CALCIUM 8.3 mg/dL (8.5-10.1)
[2023-01-04 21:55] LABS: CREATININE 1.2 mg/dL (0.55-1.3); PHOSPHOROUS 1.9 mg/dL (2.5-4.9)
[2023-01-04] MEDS ORDERED: NAPH,MB-DB/K PH,MBDB POWDER PACKET PO ONE (22:10)
[2023-01-04] MEDS: KCL 10 MEQ IVPB 10 MEQ/100 ML INFUS.BAG IVPB SCH ×2 (22:15→23:12)
[2023-01-04] MEDS ORDERED: SODIUM CHLORIDE 0.9%/KCL 20 MEQ/1,000 ML INFUS.BAG IV SCH (22:15)
[2023-01-05 01:38] LABS: POTASSIUM 4.1 mmol/L (3.5-5.1)
[2023-01-05 01:40] LABS: CALCIUM 8.2 mg/dL (8.5-10.1)
[2023-01-05 01:41] LABS: BLOOD UREA NITROGEN 19.2 mg/dL (7-18); MAGNESIUM 1.9 mg/dL (1.8-2.4)
[2023-01-05 01:44] LABS: CREATININE 1.1 mg/dL (0.55-1.3)
[2023-01-05 01:45] LABS: TOT PROT 5.2 g/dl (6.4-8.2)
[2023-01-05 01:46] LABS: BILIRUBIN,TOTAL 1.1 mg/dL (0.2-1)
[2023-01-05 01:59] LABS: ALBUMIN 2.6 g/dl (3.4-5.0)
[2023-01-05] MEDS ORDERED: ACETAMINOPHEN 650 MG/20.3 ML ORAL SOLUTION (CUPS) PO ONE (02:00)
[2023-01-05] MEDS ORDERED: INSULIN (LEVEMIR) 100 UNITS/ML UNITS SQ ONE (06:30)
[2023-01-05 07:25] LABS: BASO % 0.3 % (0-2.0); EOS % 0.6 % (0-4.5); HEMATOCRIT 32.6 % (35.4-49); HEMOGLOBIN 10.6 GM/dL (11.7-16.9); LYMPH % 17.5 % (8-40); MCH 20.6 pg (25.7-33.7); MCHC 32.6 g/dl (32.0-35.9); MEAN CELL VOLUME 63.2 fl (80-96); MEAN PLT VOLUME 8.5 fl (7.5-11.1); MONO % 11.3 % (3.8-10.2); NEUT % 70.3 % (42.8-82.8); PLATELET COUNT 122 10^3/uL (134-434); RBC 5.16 M/mm3 (4.00-5.60); RDW 15.4 % (11.9-15.9); WHITE BLOOD COUNT 7.4 K/mm3 (4.0-10.0)
[2023-01-05 07:40] LABS: POTASSIUM 3.9 mmol/L (3.5-5.1)
[2023-01-05 07:46] LABS: PHOSPHOROUS 2.2 mg/dL (2.5-4.9)
[2023-01-05] MEDS: LACTATED RINGERS SOLUTION 1,000 ML/1,000 ML INFUS.BAG IV SCH (07:50)
[2023-01-05 07:51] LABS: BLOOD UREA NITROGEN 16.8 mg/dL (7-18)
[2023-01-05 07:54] LABS: CREATININE 1.1 mg/dL (0.55-1.3)
[2023-01-05 07:56] LABS: BILIRUBIN,TOTAL 1.1 mg/dL (0.2-1); TOT PROT 5.2 g/dl (6.4-8.2)
[2023-01-05 07:59] LABS: ALBUMIN 2.5 g/dl (3.4-5.0)
[2023-01-05] MEDS ORDERED: NAPH,MB-DB/K PH,MBDB POWDER PACKET PO ONE (08:00)
[2023-01-05] MEDS ORDERED: LIDOCAINE 1% P/F 10 MG/ML VIAL SQ ONE (11:30)
[2023-01-05] MEDS ORDERED: LIDOCAINE HCL 1%, 10 MG/ML (50 mL VIAL) SQ ONE (11:30)
[2023-01-05] MEDS: ENOXAPARIN NA (PORCINE) 40 MG/0.4 ML DISP.SYRIN SQ SCH (11:34)
[2023-01-05] MEDS: VANCOMYCIN/WATER 1250 MG 1,250 MG/250 ML BAG IVPB SCH ×2 (11:34→21:30)
[2023-01-05] MEDS: ASPIRIN COATED 81 MG TABLET.EC PO SCH (11:35)
[2023-01-05] MEDS: CEFTRIAXONE 2 GM in DEXTROSE 5%-WATER 100 ML IVPB SCH (11:35)
[2023-01-05] MEDS ORDERED: INSULIN (NOVOLOG) ASPART 100 UNITS/ML 10ML VIAL ONE (11:39)
[2023-01-05] MEDS: INSULIN SLIDING SCALE (NOVOLOG) 1 VIAL SQ SCH ×3 (11:51→21:30)
[2023-01-05] MEDS: INSULIN (NOVOLOG) ASPART 100 UNITS/ML 10ML VIAL SQ SCH (16:43)
[2023-01-05] MEDS ORDERED: ACETAMINOPHEN 1000 MG/100 ML BAG IVPB ONE (18:52)
[2023-01-05] MEDS: INSULIN (LEVEMIR) 100 UNITS/ML UNITS SQ SCH (21:30)
[2023-01-05] MEDS: ATORVASTATIN CA 80 MG TABLET (FP) PO SCH (21:30)
[2023-01-05] MEDS: CHLORHEXIDINE GLUCONATE 4% CLEANSER FOR DECOLONIZATION TP SCH (21:30)
[2023-01-05] MEDS: MUPIROCIN 2% TOPICAL OINTMENT FOR DECOLONIZATION NS SCH (21:30)
[2023-01-06] MEDS: ACETAMINOPHEN 1000 MG/100 ML BAG IVPB PRN ×4 (02:30→20:30)
[2023-01-06] MEDS: INSULIN SLIDING SCALE (NOVOLOG) 1 VIAL SQ SCH ×4 (06:15→22:23)
[2023-01-06] MEDS: INSULIN (NOVOLOG) ASPART 100 UNITS/ML 10ML VIAL SQ SCH ×3 (06:15→17:24)
[2023-01-06] MEDS: INSULIN (LEVEMIR) 100 UNITS/ML UNITS SQ SCH ×2 (06:17→22:37)
[2023-01-06] MEDS: ENOXAPARIN NA (PORCINE) 40 MG/0.4 ML DISP.SYRIN SQ SCH (09:28)
[2023-01-06] MEDS: VANCOMYCIN/WATER 1250 MG 1,250 MG/250 ML BAG IVPB SCH ×2 (09:30→22:37)
[2023-01-06] MEDS: ASPIRIN COATED 81 MG TABLET.EC PO SCH (09:35)
[2023-01-06] MEDS: MUPIROCIN 2% TOPICAL OINTMENT FOR DECOLONIZATION NS SCH ×2 (09:36→22:38)
[2023-01-06] MEDS: CEFTRIAXONE 2 GM in DEXTROSE 5%-WATER 100 ML IVPB SCH (09:36)
[2023-01-06] MEDS: LACTATED RINGERS SOLUTION 1,000 ML/1,000 ML INFUS.BAG IV SCH (09:36)
[2023-01-06 10:30] LABS: BASO % 0.3 % (0-2.0); EOS % 1.6 % (0-4.5); HEMATOCRIT 34.4 % (35.4-49); HEMOGLOBIN 11.1 GM/dL (11.7-16.9); LYMPH % 18.4 % (8-40); MCH 20.2 pg (25.7-33.7); MCHC 32.3 g/dl (32.0-35.9); MEAN CELL VOLUME 62.5 fl (80-96); MEAN PLT VOLUME 8.3 fl (7.5-11.1); NEUT % 67.7 % (42.8-82.8); PLATELET COUNT 129 10^3/uL (134-434); RBC 5.51 M/mm3 (4.00-5.60); RDW 15.5 % (11.9-15.9); WHITE BLOOD COUNT 5.9 K/mm3 (4.0-10.0)
[2023-01-06] MEDS ORDERED: INSULIN (NOVOLOG) ASPART 100 UNITS/ML 10ML VIAL ONE (11:24)
[2023-01-06] MEDS ORDERED: DEXTROSE 50%-WATER - 25 GM/50 ML VIAL IVPUSH PRN (14:52)
[2023-01-06] MEDS: ATORVASTATIN CA 80 MG TABLET (FP) PO SCH (22:37)
[2023-01-06] MEDS: CHLORHEXIDINE GLUCONATE 4% CLEANSER FOR DECOLONIZATION TP SCH (22:40)
[2023-01-07] MEDS: ACETAMINOPHEN 1000 MG/100 ML BAG IVPB PRN ×2 (02:30→06:16)
[2023-01-07] MEDS: INSULIN (NOVOLOG) ASPART 100 UNITS/ML 10ML VIAL SQ SCH ×3 (06:14→17:07)
[2023-01-07] MEDS: INSULIN SLIDING SCALE (NOVOLOG) 1 VIAL SQ SCH ×4 (06:15→21:41)
[2023-01-07] MEDS: ENOXAPARIN NA (PORCINE) 40 MG/0.4 ML DISP.SYRIN SQ SCH (09:20)
[2023-01-07] MEDS: ASPIRIN COATED 81 MG TABLET.EC PO SCH (09:20)
[2023-01-07] MEDS: INSULIN (LEVEMIR) 100 UNITS/ML UNITS SQ SCH (09:20)
[2023-01-07] MEDS ORDERED: CEFTRIAXONE 2 GM in DEXTROSE 5%-WATER 100 ML IVPB SCH (10:00)
[2023-01-07] MEDS: VANCOMYCIN/WATER 1250 MG 1,250 MG/250 ML BAG IVPB SCH (10:30)
[2023-01-07] MEDS ORDERED: INSULIN (LEVEMIR) 100 UNITS/ML UNITS SQ SCH (16:30)
[2023-01-07] MEDS ORDERED: POLYETHYLENE GLYCOL (HEALTHYLAX) 3350 17 GM PACKET PO ONE (16:45)
[2023-01-07] MEDS: CEFAZOLIN SODIUM 2 GM in SODIUM CHLORIDE 100 ML IVPB SCH (17:04)
[2023-01-07] MEDS: ACETAMINOPHEN 325 MG TABLET (FP) PO PRN (21:18)
[2023-01-07] MEDS: ATORVASTATIN CA 80 MG TABLET (FP) PO SCH (21:19)
[2023-01-08] MEDS: CEFAZOLIN SODIUM 2 GM in SODIUM CHLORIDE 100 ML IVPB SCH ×4 (01:51→18:58)
[2023-01-08] MEDS: ACETAMINOPHEN 325 MG TABLET (FP) PO PRN ×3 (02:00→17:02)
[2023-01-08] MEDS ORDERED: KETOROLAC TROMETHAMINE 15 MG/ML VIAL IVPUSH ONE (03:34)
[2023-01-08] MEDS: INSULIN (NOVOLOG) ASPART 100 UNITS/ML 10ML VIAL SQ SCH ×3 (07:10→17:01)
[2023-01-08] MEDS: INSULIN SLIDING SCALE (NOVOLOG) 1 VIAL SQ SCH ×4 (07:11→21:39)
[2023-01-08] MEDS: INSULIN (LEVEMIR) 100 UNITS/ML UNITS SQ SCH ×2 (07:12→16:53)
[2023-01-08] MEDS: POLYETHYLENE GLYCOL (HEALTHYLAX) 3350 17 GM PACKET PO SCH ×3 (09:12→21:25)
[2023-01-08] MEDS: ENOXAPARIN NA (PORCINE) 40 MG/0.4 ML DISP.SYRIN SQ SCH (09:12)
[2023-01-08] MEDS: ASPIRIN COATED 81 MG TABLET.EC PO SCH (09:12)
[2023-01-08 10:42] LABS: BASO % 0.3 % (0-2.0); EOS % 2.2 % (0-4.5); HEMOGLOBIN 10.7 GM/dL (11.7-16.9); LYMPH % 19.2 % (8-40); MCH 20.5 pg (25.7-33.7); MCHC 32.6 g/dl (32.0-35.9); MEAN PLT VOLUME 8.6 fl (7.5-11.1); MONO % 7.5 % (3.8-10.2); NEUT % 70.8 % (42.8-82.8); PLATELET COUNT 188 10^3/uL (134-434); RBC 5.23 M/mm3 (4.00-5.60); RDW 14.6 % (11.9-15.9); WHITE BLOOD COUNT 6.7 K/mm3 (4.0-10.0)
[2023-01-08 11:20] LABS: POTASSIUM 3.3 mmol/L (3.5-5.1)
[2023-01-08 11:22] LABS: ALBUMIN 2.3 g/dl (3.4-5.0); BLOOD UREA NITROGEN 10.4 mg/dL (7-18); CALCIUM 8.1 mg/dL (8.5-10.1)
[2023-01-08 11:25] LABS: CREATININE 0.7 mg/dL (0.55-1.3)
[2023-01-08 11:27] LABS: BILIRUBIN,TOTAL 0.9 mg/dL (0.2-1); TOT PROT 5.2 g/dl (6.4-8.2)
[2023-01-08 11:42] LABS: ANISOCYTOSIS 3+; MACROCYTOSIS 0
[2023-01-08] MEDS: FAMOTIDINE 20 MG TABLET PO SCH (13:21)
[2023-01-08] MEDS ORDERED: POTASSIUM CHLORIDE ORAL LIQUID 20 MEQ/15 ML PO ONE (13:49)
[2023-01-08] MEDS: ATORVASTATIN CA 80 MG TABLET (FP) PO SCH (21:25)
[2023-01-09] MEDS: CEFAZOLIN SODIUM 2 GM in SODIUM CHLORIDE 100 ML IVPB SCH ×4 (02:03→18:33)
[2023-01-09] MEDS: ACETAMINOPHEN 325 MG TABLET (FP) PO PRN ×3 (05:01→17:12)
[2023-01-09] MEDS: INSULIN (LEVEMIR) 100 UNITS/ML UNITS SQ SCH ×2 (06:46→17:08)
[2023-01-09] MEDS: INSULIN SLIDING SCALE (NOVOLOG) 1 VIAL SQ SCH ×4 (06:47→21:44)
[2023-01-09] MEDS: INSULIN (NOVOLOG) ASPART 100 UNITS/ML 10ML VIAL SQ SCH ×3 (06:47→17:10)
[2023-01-09 09:42] LABS: HEMATOCRIT 33.2 % (35.4-49); HEMOGLOBIN 10.6 GM/dL (11.7-16.9); MCH 20.1 pg (25.7-33.7); MEAN CELL VOLUME 62.9 fl (80-96); MEAN PLT VOLUME 8.4 fl (7.5-11.1); PLATELET COUNT 249 10^3/uL (134-434); RBC 5.28 M/mm3 (4.00-5.60); RDW 14.7 % (11.9-15.9); WHITE BLOOD COUNT 7.5 K/mm3 (4.0-10.0)
[2023-01-09] MEDS: ASPIRIN COATED 81 MG TABLET.EC PO SCH (09:52)
[2023-01-09] MEDS: ENOXAPARIN NA (PORCINE) 40 MG/0.4 ML DISP.SYRIN SQ SCH (09:52)
[2023-01-09 10:01] LABS: POTASSIUM 3.8 mmol/L (3.5-5.1)
[2023-01-09 10:02] LABS: BLOOD UREA NITROGEN 9.8 mg/dL (7-18); CALCIUM 8.4 mg/dL (8.5-10.1)
[2023-01-09 10:05] LABS: CREATININE 0.6 mg/dL (0.55-1.3)
[2023-01-09] MEDS: FAMOTIDINE 20 MG TABLET PO SCH ×2 (10:10→10:16)
[2023-01-09] MEDS: POLYETHYLENE GLYCOL (HEALTHYLAX) 3350 17 GM PACKET PO SCH ×2 (10:16→21:42)
[2023-01-09] MEDS: ATORVASTATIN CA 80 MG TABLET (FP) PO SCH (21:42)
[2023-01-09] MEDS ORDERED: traMADol HCL 50 MG TABLET PO ONE (21:49)
[2023-01-10] MEDS: CEFAZOLIN SODIUM 2 GM in SODIUM CHLORIDE 100 ML IVPB SCH ×3 (01:17→17:34)
[2023-01-10] MEDS: INSULIN (LEVEMIR) 100 UNITS/ML UNITS SQ SCH (06:11)
[2023-01-10] MEDS: INSULIN SLIDING SCALE (NOVOLOG) 1 VIAL SQ SCH ×3 (06:12→17:33)
[2023-01-10] MEDS: INSULIN (NOVOLOG) ASPART 100 UNITS/ML 10ML VIAL SQ SCH ×3 (07:21→17:34)
[2023-01-10] MEDS: ENOXAPARIN NA (PORCINE) 40 MG/0.4 ML DISP.SYRIN SQ SCH (10:06)
[2023-01-10] MEDS: POLYETHYLENE GLYCOL (HEALTHYLAX) 3350 17 GM PACKET PO SCH (10:06)
[2023-01-10] MEDS: FAMOTIDINE 20 MG TABLET PO SCH (10:07)
[2023-01-10] MEDS: ASPIRIN COATED 81 MG TABLET.EC PO SCH (10:07)
[2023-01-10 11:38] LABS: POTASSIUM 3.6 mmol/L (3.5-5.1)
[2023-01-10 11:39] LABS: CALCIUM 8.2 mg/dL (8.5-10.1)
[2023-01-10] MEDS ORDERED: INSULIN SLIDING SCALE (NOVOLOG) 1 VIAL SQ ONE (11:40)
[2023-01-10 11:43] LABS: CREATININE 0.6 mg/dL (0.55-1.3)
[2023-01-10 12:26] LABS: HEMATOCRIT 34.2 % (35.4-49); HEMOGLOBIN 10.7 GM/dL (11.7-16.9); MCHC 31.4 g/dl (32.0-35.9); MEAN CELL VOLUME 63.4 fl (80-96); MEAN PLT VOLUME 7.7 fl (7.5-11.1); PLATELET COUNT 304 10^3/uL (134-434); RBC 5.39 M/mm3 (4.00-5.60); RDW 14.8 % (11.9-15.9)
[2023-01-10 12:27] LABS: MCH 19.9 pg (25.7-33.7)
[2023-01-10 13:07] LABS: ERYTHROCYTE SEDIMENTATION RATE 45 mm/hr (0-20)
[2023-01-10 16:46] VITALS: BMI 31.8
[2023-01-10] MEDS: TRIAMCINOLONE ACET 0.1% 60 ML LOTION TP SCH (23:34)
[2023-01-10] MEDS: METHYL SALICYLATE/MENTHOL OINT 30 GM TUBE TP SCH (23:34)
[2023-01-10] MEDS: MINERAL OIL/PET HY-PHL TOPICAL OINTMENT 454 GM JAR TP SCH (23:35)
[2023-01-11] MEDS: INSULIN SLIDING SCALE (NOVOLOG) 1 VIAL SQ SCH ×5 (00:06→21:58)
[2023-01-11] MEDS: ATORVASTATIN CA 80 MG TABLET (FP) PO SCH ×2 (00:06→21:57)
[2023-01-11] MEDS: INSULIN (LEVEMIR) 100 UNITS/ML UNITS SQ SCH ×3 (00:06→21:57)
[2023-01-11] MEDS: POLYETHYLENE GLYCOL (HEALTHYLAX) 3350 17 GM PACKET PO SCH ×3 (00:06→21:56)
[2023-01-11] MEDS: CEFAZOLIN SODIUM 2 GM in SODIUM CHLORIDE 100 ML IVPB SCH ×3 (06:13→18:17)
[2023-01-11] MEDS: INSULIN (NOVOLOG) ASPART 100 UNITS/ML 10ML VIAL SQ SCH ×3 (06:14→16:34)
[2023-01-11] MEDS: TRIAMCINOLONE ACET 0.1% 60 ML LOTION TP SCH ×2 (09:20→23:15)
[2023-01-11] MEDS: MINERAL OIL/PET HY-PHL TOPICAL OINTMENT 454 GM JAR TP SCH ×2 (09:20→23:15)
[2023-01-11] MEDS: FAMOTIDINE 20 MG TABLET PO SCH ×2 (09:21→09:22)
[2023-01-11] MEDS: METHYL SALICYLATE/MENTHOL OINT 30 GM TUBE TP SCH ×2 (09:22→23:15)
[2023-01-11] MEDS: ASPIRIN COATED 81 MG TABLET.EC PO SCH (09:22)
[2023-01-11] MEDS: ENOXAPARIN NA (PORCINE) 40 MG/0.4 ML DISP.SYRIN SQ SCH (09:22)
[2023-01-11] MEDS ORDERED: INSULIN (NOVOLOG) ASPART 100 UNITS/ML 10ML VIAL ONE (22:49)
[2023-01-11] MEDS ORDERED: MELATONIN 5 MG TABLETS PO ONE (23:13)
[2023-01-11] MEDS: KETOROLAC TROMETHAMINE 30 MG/1 ML VIAL IVPUSH PRN (23:56)
[2023-01-12] MEDS: CEFAZOLIN SODIUM 2 GM in SODIUM CHLORIDE 100 ML IVPB SCH ×3 (01:41→18:04)
[2023-01-12] MEDS: INSULIN (LEVEMIR) 100 UNITS/ML UNITS SQ SCH ×2 (06:33→22:43)
[2023-01-12] MEDS: INSULIN (NOVOLOG) ASPART 100 UNITS/ML 10ML VIAL SQ SCH ×3 (06:35→18:22)
[2023-01-12] MEDS: INSULIN SLIDING SCALE (NOVOLOG) 1 VIAL SQ SCH ×4 (06:36→22:44)
[2023-01-12 08:44] LABS: HEMATOCRIT 31.6 % (35.4-49); HEMOGLOBIN 10.1 GM/dL (11.7-16.9); MCH 20.2 pg (25.7-33.7); MCHC 32.1 g/dl (32.0-35.9); MEAN CELL VOLUME 62.8 fl (80-96); MEAN PLT VOLUME 7.8 fl (7.5-11.1); PLATELET COUNT 328 10^3/uL (134-434); RBC 5.03 M/mm3 (4.00-5.60); RDW 14.7 % (11.9-15.9); WHITE BLOOD COUNT 6.3 K/mm3 (4.0-10.0)
[2023-01-12 09:00] LABS: POTASSIUM 3.8 mmol/L (3.5-5.1)
[2023-01-12 09:07] LABS: CALCIUM 8.7 mg/dL (8.5-10.1)
[2023-01-12 09:08] LABS: ALBUMIN 2.5 g/dl (3.4-5.0); BLOOD UREA NITROGEN 18.5 mg/dL (7-18)
[2023-01-12 09:09] LABS: CREATININE 0.7 mg/dL (0.55-1.3)
[2023-01-12 09:11] LABS: BILIRUBIN,TOTAL 0.8 mg/dL (0.2-1); TOT PROT 5.8 g/dl (6.4-8.2)
[2023-01-12] MEDS: FAMOTIDINE 20 MG TABLET PO SCH (10:16)
[2023-01-12] MEDS: ENOXAPARIN NA (PORCINE) 40 MG/0.4 ML DISP.SYRIN SQ SCH (10:42)
[2023-01-12] MEDS: POLYETHYLENE GLYCOL (HEALTHYLAX) 3350 17 GM PACKET PO SCH ×2 (10:42→22:03)
[2023-01-12] MEDS: MINERAL OIL/PET HY-PHL TOPICAL OINTMENT 454 GM JAR TP SCH ×2 (10:43→22:09)
[2023-01-12] MEDS: ASPIRIN COATED 81 MG TABLET.EC PO SCH (10:43)
[2023-01-12] MEDS: METHYL SALICYLATE/MENTHOL OINT 30 GM TUBE TP SCH ×2 (10:43→22:10)
[2023-01-12] MEDS: TRIAMCINOLONE ACET 0.1% 60 ML LOTION TP SCH ×2 (10:43→22:10)
[2023-01-12] MEDS ORDERED: AMMONIUM LACTATE 12% LOTION 225 GM BOTTLE TP PRN (11:10)
[2023-01-12] MEDS: ACETAMINOPHEN 325 MG TABLET (FP) PO PRN (19:01)
[2023-01-12] MEDS: ATORVASTATIN CA 80 MG TABLET (FP) PO SCH (22:11)
[2023-01-13] MEDS: KETOROLAC TROMETHAMINE 30 MG/1 ML VIAL IVPUSH PRN (00:50)
[2023-01-13] MEDS ORDERED: MELATONIN 5 MG TABLETS PO PRN (01:28)
[2023-01-13] MEDS: CEFAZOLIN SODIUM 2 GM in SODIUM CHLORIDE 100 ML IVPB SCH ×3 (02:13→18:52)
[2023-01-13] MEDS: INSULIN (LEVEMIR) 100 UNITS/ML UNITS SQ SCH ×2 (07:33→23:57)
[2023-01-13] MEDS: INSULIN SLIDING SCALE (NOVOLOG) 1 VIAL SQ SCH ×4 (07:45→23:56)
[2023-01-13] MEDS: INSULIN (NOVOLOG) ASPART 100 UNITS/ML 10ML VIAL SQ SCH ×3 (07:46→17:43)
[2023-01-13] MEDS ORDERED: INSULIN (NOVOLOG) ASPART 100 UNITS/ML 10ML VIAL ONE ×3 (07:56→22:29)
[2023-01-13] MEDS: FAMOTIDINE 20 MG TABLET PO SCH (11:00)
[2023-01-13] MEDS: ASPIRIN COATED 81 MG TABLET.EC PO SCH (11:00)
[2023-01-13] MEDS: ENOXAPARIN NA (PORCINE) 40 MG/0.4 ML DISP.SYRIN SQ SCH (11:00)
[2023-01-13] MEDS: METHYL SALICYLATE/MENTHOL OINT 30 GM TUBE TP SCH ×2 (11:01→22:58)
[2023-01-13] MEDS: POLYETHYLENE GLYCOL (HEALTHYLAX) 3350 17 GM PACKET PO SCH ×2 (11:01→22:56)
[2023-01-13] MEDS: MINERAL OIL/PET HY-PHL TOPICAL OINTMENT 454 GM JAR TP SCH ×2 (11:01→22:59)
[2023-01-13] MEDS: TRIAMCINOLONE ACET 0.1% 60 ML LOTION TP SCH (11:02)
[2023-01-13] MEDS: ACETAMINOPHEN 325 MG TABLET (FP) PO PRN (20:18)
[2023-01-13] MEDS: ATORVASTATIN CA 80 MG TABLET (FP) PO SCH (22:02)
[2023-01-14] MEDS: CEFAZOLIN SODIUM 2 GM in SODIUM CHLORIDE 100 ML IVPB SCH ×3 (01:39→17:56)
[2023-01-14] MEDS: KETOROLAC TROMETHAMINE 30 MG/1 ML VIAL IVPUSH PRN ×3 (04:02→22:58)
[2023-01-14] MEDS: INSULIN (LEVEMIR) 100 UNITS/ML UNITS SQ SCH ×2 (08:19→21:29)
[2023-01-14] MEDS: INSULIN (NOVOLOG) ASPART 100 UNITS/ML 10ML VIAL SQ SCH ×3 (08:20→16:54)
[2023-01-14] MEDS: INSULIN SLIDING SCALE (NOVOLOG) 1 VIAL SQ SCH ×4 (08:20→21:18)
[2023-01-14] MEDS: POLYETHYLENE GLYCOL (HEALTHYLAX) 3350 17 GM PACKET PO SCH ×2 (09:47→21:19)
[2023-01-14] MEDS: FAMOTIDINE 20 MG TABLET PO SCH (09:48)
[2023-01-14] MEDS: ASPIRIN COATED 81 MG TABLET.EC PO SCH (09:48)
[2023-01-14] MEDS: MINERAL OIL/PET HY-PHL TOPICAL OINTMENT 454 GM JAR TP SCH ×2 (09:49→21:17)
[2023-01-14] MEDS: METHYL SALICYLATE/MENTHOL OINT 30 GM TUBE TP SCH ×2 (09:49→21:16)
[2023-01-14] MEDS: TRIAMCINOLONE ACET 0.1% 60 ML LOTION TP SCH ×3 (09:49→21:17)
[2023-01-14 10:36] LABS: HEMATOCRIT 29.6 % (35.4-49); HEMOGLOBIN 9.5 GM/dL (11.7-16.9); MEAN CELL VOLUME 61.7 fl (80-96); MEAN PLT VOLUME 7.1 fl (7.5-11.1); PLATELET COUNT 332 10^3/uL (134-434)
[2023-01-14 10:48] LABS: MCH 19.7 pg (25.7-33.7)
[2023-01-14 10:52] LABS: POTASSIUM 4.2 mmol/L (3.5-5.1)
[2023-01-14 10:55] LABS: CALCIUM 8.7 mg/dL (8.5-10.1)
[2023-01-14 10:56] LABS: ALBUMIN 2.4 g/dl (3.4-5.0); BLOOD UREA NITROGEN 14.3 mg/dL (7-18)
[2023-01-14 10:59] LABS: CREATININE 0.6 mg/dL (0.55-1.3)
[2023-01-14 11:00] LABS: TOT PROT 5.6 g/dl (6.4-8.2)
[2023-01-14 11:01] LABS: BILIRUBIN,TOTAL 0.8 mg/dL (0.2-1)
[2023-01-14] MEDS: ACETAMINOPHEN 325 MG TABLET (FP) PO PRN (14:51)
[2023-01-14] MEDS ORDERED: INSULIN (NOVOLOG) ASPART 100 UNITS/ML 10ML VIAL ONE (20:53)
[2023-01-14] MEDS: ATORVASTATIN CA 80 MG TABLET (FP) PO SCH (21:18)
[2023-01-15] MEDS: CEFAZOLIN SODIUM 2 GM in SODIUM CHLORIDE 100 ML IVPB SCH ×2 (02:19→10:22)
[2023-01-15] MEDS: ACETAMINOPHEN 325 MG TABLET (FP) PO PRN (04:49)
[2023-01-15] MEDS: INSULIN (LEVEMIR) 100 UNITS/ML UNITS SQ SCH (06:06)
[2023-01-15] MEDS: INSULIN (NOVOLOG) ASPART 100 UNITS/ML 10ML VIAL SQ SCH ×2 (06:06→12:04)
[2023-01-15] MEDS: INSULIN SLIDING SCALE (NOVOLOG) 1 VIAL SQ SCH ×2 (06:07→12:04)
[2023-01-15] MEDS ORDERED: INSULIN (NOVOLOG) ASPART 100 UNITS/ML 10ML VIAL ONE (08:17)
[2023-01-15] MEDS: FAMOTIDINE 20 MG TABLET PO SCH (10:21)
[2023-01-15] MEDS: ASPIRIN COATED 81 MG TABLET.EC PO SCH (10:21)
[2023-01-15] MEDS: MINERAL OIL/PET HY-PHL TOPICAL OINTMENT 454 GM JAR TP SCH (10:22)
[2023-01-15] MEDS: METHYL SALICYLATE/MENTHOL OINT 30 GM TUBE TP SCH (10:22)
[2023-01-15] MEDS: TRIAMCINOLONE ACET 0.1% 60 ML LOTION TP SCH (10:22)
[2023-01-15] MEDS: POLYETHYLENE GLYCOL (HEALTHYLAX) 3350 17 GM PACKET PO SCH (10:22)
[2023-01-15] MEDS ORDERED: CEFTRIAXONE 2 GM in DEXTROSE 5%-WATER 100 ML IVPB ONE (14:27)
[2023-01-15 16:27] VITALS: BP 120/75; PULSE 96; RESP 20; TEMP 99.5
== END 2023-01-15 16:24 | disposition home or self-care (01) | DRG 720 ==
LOC: JER 11:26 → JERBED 15:12 → JICU 17:02 → J5S 01-06 14:27 → J8W 01-11 12:21
PROVIDERS: ADMIT Internal Medicine Pulmonary Disease; ATTEND Family Medicine
PROC: 0S993ZX Drainage of Right Hip Joint, Percutaneous Approach, Diagnostic (ICD-10-PCS; principal; 2023-01-09)
PROC: BQ20ZZZ Computerized Tomography (CT Scan) of Right Hip (ICD-10-PCS; 2023-01-09)
DX: A41.89 Other specified sepsis (principal); E11.10 Type 2 diabetes mellitus with ketoacidosis without coma; L02.01 Cutaneous abscess of face; I25.10 Atherosclerotic heart disease of native coronary artery without angina pectoris; I10 Essential (primary) hypertension; E78.5 Hyperlipidemia, unspecified; E11.42 Type 2 diabetes mellitus with diabetic polyneuropathy; E86.0 Dehydration; R26.2 Difficulty in walking, not elsewhere classified; E87.6 Hypokalemia; N39.0 Urinary tract infection, site not specified; B96.20 Unspecified Escherichia coli [E. coli] as the cause of diseases classified elsewhere; B35.1 Tinea unguium; L85.3 Xerosis cutis; G47.00 Insomnia, unspecified; I95.9 Hypotension, unspecified; I25.2 Old myocardial infarction; M79.651 Pain in right thigh; N17.9 Acute kidney failure, unspecified; M25.451 Effusion, right hip; E66.9 Obesity, unspecified; Z68.31 Body mass index [BMI] 31.0-31.9, adult; K59.00 Constipation, unspecified; Z95.5 Presence of coronary angioplasty implant and graft; Z91.148 Patient's other noncompliance with medication regimen for other reason
CPT/HCPCS: 20610; 36415; 70450-TC; 71045-TC-FY; 73701-TC-RT; 77012-TC; 80048; 80053; 81003; 82010; 82550; 82570; 82803; 82962; 83036; 83605; 83735; 84100; 84484; 84540; 85025; 85027; 85610; 85651; 85730; 86140; 87040; 87070; 87075; 87086; 87102; 87116; 87186; 87205; 87206; 87210; 88108; 88305-TC; 93005; 93010; 93306-TC; 97116-GP; 97162-GP; 99291; G0480; Q9967

== ENCOUNTER 2023-01-16 13:18 | Day surgery (SDC) | payer OTHER ==
[2023-01-16] MEDS ORDERED: CEFTRIAXONE 2 GM in SODIUM CHLORIDE 100 ML IVPB ONE (13:30)
[2023-01-16 15:33] VITALS: BP 100/58; PULSE 84; RESP 16; TEMP 98.4
== END 2023-01-16 15:34 | disposition home or self-care (01) ==
LOC: FINFUSION 13:18 → FM/S 13:20 → FINFUSION 15:34
PROVIDERS: ATTEND Internal Medicine Infectious Disease
DX: N39.0 Urinary tract infection, site not specified (principal); N48.1 Balanitis; E11.10 Type 2 diabetes mellitus with ketoacidosis without coma; Z79.4 Long term (current) use of insulin; A41.9 Sepsis, unspecified organism
CPT/HCPCS: 96365

== ENCOUNTER 2023-01-17 12:33 | Day surgery (SDC) | payer OTHER ==
[2023-01-17] MEDS ORDERED: CEFTRIAXONE 2 GM in SODIUM CHLORIDE 100 ML IVPB ONE (13:00)
[2023-01-17 16:14] VITALS: BP 129/70; PULSE 72; RESP 20; TEMP 98.5
== END 2023-01-17 13:55 | disposition home or self-care (01) ==
LOC: FINFUSION 12:33 → FM/S 12:44 → FINFUSION 13:55
PROVIDERS: ATTEND Internal Medicine Infectious Disease
DX: N39.0 Urinary tract infection, site not specified (principal); N48.1 Balanitis; E11.10 Type 2 diabetes mellitus with ketoacidosis without coma; Z79.4 Long term (current) use of insulin; A41.9 Sepsis, unspecified organism
CPT/HCPCS: 96365

== ENCOUNTER 2023-01-18 12:41 | Day surgery (SDC) | payer OTHER ==
[2023-01-18] MEDS ORDERED: CEFTRIAXONE 2 GM in SODIUM CHLORIDE 100 ML IVPB ONE (13:15)
[2023-01-18 14:34] VITALS: BP 98/53; PULSE 80; RESP 18; TEMP 98
== END 2023-01-18 14:34 | disposition home or self-care (01) ==
LOC: FINFUSION 12:41 → FM/S 12:42 → FINFUSION 14:34
PROVIDERS: ATTEND Internal Medicine Infectious Disease
DX: N39.0 Urinary tract infection, site not specified (principal); N48.1 Balanitis; E11.10 Type 2 diabetes mellitus with ketoacidosis without coma; Z79.4 Long term (current) use of insulin; A41.9 Sepsis, unspecified organism
CPT/HCPCS: 96365

== ENCOUNTER 2023-01-19 12:40 | Day surgery (SDC) | payer OTHER ==
[2023-01-19] MEDS ORDERED: CEFTRIAXONE 2 GM in SODIUM CHLORIDE 100 ML IVPB ONE (13:15)
[2023-01-19 13:57] VITALS: BP 116/75; PULSE 80; RESP 18; TEMP 98.5
== END 2023-01-19 13:59 | disposition home or self-care (01) ==
LOC: FINFUSION 12:40 → FM/S 12:41 → FINFUSION 13:59
PROVIDERS: ATTEND Internal Medicine Infectious Disease
DX: N39.0 Urinary tract infection, site not specified (principal); N48.1 Balanitis; E11.10 Type 2 diabetes mellitus with ketoacidosis without coma; Z79.4 Long term (current) use of insulin; A41.9 Sepsis, unspecified organism
CPT/HCPCS: 96365

== ENCOUNTER 2023-01-20 13:02 | Day surgery (SDC) | payer OTHER ==
[2023-01-20] MEDS ORDERED: CEFTRIAXONE 2 GM in SODIUM CHLORIDE 100 ML IVPB SCH (13:30)
[2023-01-20 14:38] VITALS: BP 110/57; PULSE 82; RESP 18; TEMP 98.4
== END 2023-01-20 14:52 | disposition home or self-care (01) ==
LOC: FINFUSION 13:02 → FM/S 13:03 → FINFUSION 14:52
PROVIDERS: ATTEND Internal Medicine Infectious Disease
DX: N39.0 Urinary tract infection, site not specified (principal); N48.1 Balanitis; E11.10 Type 2 diabetes mellitus with ketoacidosis without coma; Z79.4 Long term (current) use of insulin; A41.9 Sepsis, unspecified organism
CPT/HCPCS: 96365

== ENCOUNTER 2023-01-21 12:35 | Day surgery (SDC) | payer OTHER ==
[2023-01-21] MEDS ORDERED: CEFTRIAXONE 2 GM in DEXTROSE 5%-WATER 100 ML IVPB ONE (13:00)
[2023-01-21 14:08] VITALS: BP 101/59; PULSE 92; RESP 18; TEMP 98.4
== END 2023-01-21 13:45 | disposition home or self-care (01) ==
LOC: FINFUSION 12:35 → FM/S 12:39 → FINFUSION 13:45
PROVIDERS: ATTEND Internal Medicine Infectious Disease
DX: N39.0 Urinary tract infection, site not specified (principal); N48.1 Balanitis; E11.10 Type 2 diabetes mellitus with ketoacidosis without coma; Z79.4 Long term (current) use of insulin; A41.9 Sepsis, unspecified organism
CPT/HCPCS: 96365

== ENCOUNTER 2023-01-22 12:37 | Day surgery (SDC) | payer OTHER ==
[2023-01-22] MEDS ORDERED: CEFTRIAXONE 2 GM in DEXTROSE 5%-WATER 100 ML IVPB ONE (13:00)
[2023-01-22 14:03] VITALS: BP 116/67; PULSE 85; RESP 18; TEMP 98.3
== END 2023-01-22 14:03 | disposition home or self-care (01) ==
LOC: FINFUSION 12:37 → FM/S 12:38 → FINFUSION 14:03
PROVIDERS: ATTEND Internal Medicine Infectious Disease
DX: N39.0 Urinary tract infection, site not specified (principal); N48.1 Balanitis; E11.10 Type 2 diabetes mellitus with ketoacidosis without coma; Z79.4 Long term (current) use of insulin; A41.9 Sepsis, unspecified organism
CPT/HCPCS: 96365

== ENCOUNTER 2023-01-23 10:20 | Day surgery (SDC) | payer OTHER ==
[2023-01-23] MEDS ORDERED: CEFTRIAXONE 2 GM in SODIUM CHLORIDE 100 ML IVPB ONE (10:30)
[2023-01-23 11:27] VITALS: BP 113/61; PULSE 81; RESP 20; TEMP 98.9
== END 2023-01-23 11:27 | disposition home or self-care (01) ==
LOC: FINFUSION 10:20 → FM/S 10:24 → FINFUSION 11:27
PROVIDERS: ATTEND Internal Medicine Infectious Disease
DX: N39.0 Urinary tract infection, site not specified (principal); N48.1 Balanitis; E11.10 Type 2 diabetes mellitus with ketoacidosis without coma; Z79.4 Long term (current) use of insulin; A41.9 Sepsis, unspecified organism
CPT/HCPCS: 96365

== ENCOUNTER 2023-01-24 11:52 | Day surgery (SDC) | payer OTHER ==
[2023-01-24] MEDS ORDERED: CEFTRIAXONE 2 GM in SODIUM CHLORIDE 100 ML IVPB ONE (12:15)
[2023-01-24 13:33] VITALS: BP 122/74; PULSE 66; RESP 18; TEMP 97.8
== END 2023-01-24 13:10 | disposition home or self-care (01) ==
LOC: FINFUSION 11:52 → FM/S 11:53 → FINFUSION 13:10
PROVIDERS: ATTEND Internal Medicine Infectious Disease
DX: N39.0 Urinary tract infection, site not specified (principal); N48.1 Balanitis; E11.10 Type 2 diabetes mellitus with ketoacidosis without coma; Z79.4 Long term (current) use of insulin; A41.9 Sepsis, unspecified organism
CPT/HCPCS: 96365

== ENCOUNTER 2023-01-25 11:36 | Day surgery (SDC) | payer OTHER ==
[2023-01-25] MEDS ORDERED: CEFTRIAXONE 2 GM in SODIUM CHLORIDE 100 ML IVPB ONE (11:45)
[2023-01-25 12:56] VITALS: BP 130/75; PULSE 84; RESP 18; TEMP 98.4
== END 2023-01-25 12:56 | disposition home or self-care (01) ==
LOC: FINFUSION 11:36 → FM/S 11:40 → FINFUSION 12:56
PROVIDERS: ATTEND Internal Medicine Infectious Disease
DX: N39.0 Urinary tract infection, site not specified (principal); N48.1 Balanitis; E11.10 Type 2 diabetes mellitus with ketoacidosis without coma; Z79.4 Long term (current) use of insulin; A41.9 Sepsis, unspecified organism
CPT/HCPCS: 96365

== ENCOUNTER 2023-01-26 11:25 | Day surgery (SDC) | payer OTHER ==
[2023-01-26] MEDS ORDERED: CEFTRIAXONE 2 GM in SODIUM CHLORIDE 100 ML IVPB ONE (12:00)
[2023-01-26 12:39] VITALS: BP 126/68; PULSE 80; RESP 16; TEMP 98.4
== END 2023-01-26 12:39 | disposition home or self-care (01) ==
LOC: FINFUSION 11:25 → FM/S 11:26 → FINFUSION 12:39
PROVIDERS: ATTEND Internal Medicine Infectious Disease
DX: N39.0 Urinary tract infection, site not specified (principal); N48.1 Balanitis; E11.10 Type 2 diabetes mellitus with ketoacidosis without coma; Z79.4 Long term (current) use of insulin; A41.9 Sepsis, unspecified organism
CPT/HCPCS: 96365